=== PATIENT | female | born 2000 | race Caucasian/White ===

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

== ENCOUNTER 2023-05-17 09:25 | Emergency (ER) | payer BC, OTHER ==
[2023-05-17 10:26] LABS: INFLUENZA A NAA NEGATIVE (NEGATIVE); INFLUENZA B NAA NEGATIVE (NEGATIVE); RESPIRATORY SYNCYTIAL VIR NAA NEGATIVE (NEGATIVE)
[2023-05-17 10:28] LABS: CORONAVIRUS COVID-19 NAA NEGATIVE (NEGATIVE); STREP A BY PCR NOT DETECTED (NOT DETECT)
[2023-05-17] MEDS ORDERED: predniSONE 20 MG Tab PO ONE (11:06)
[2023-05-17] MEDS ORDERED: Amoxicillin 500 MG Cap PO ONE (11:07)
[2023-05-17] MEDS ORDERED: Ketorolac 30 MG/ML SDV IM ONE (11:07)
== END 2023-05-17 11:30 | disposition home or self-care (01) ==
LOC: KA.ED 09:25
DX: J02.9 Acute pharyngitis, unspecified (principal); Z20.822 Contact with and (suspected) exposure to COVID-19
CPT/HCPCS: 0241U; 36415; 86308; 87651-QW; 96372; 99283; A9270-GY; J1885; J7512